=== PATIENT | male | born 1980 | race Caucasian/White ===

== ENCOUNTER 2021-09-23 13:15 | Inpatient (IN) ==
[2021-09-23] MEDS ORDERED: Ondansetron 4 mg VIAL 2 MG/ML 2 ml VIAL IV ONE (14:29)
[2021-09-23] MEDS ORDERED: Morphine 2 MG/ML SYRINGE IV PRN (15:25)
[2021-09-23] MEDS ORDERED: Magnesium Hydroxide LIQ 30 ML UDC PO PRN (15:25)
[2021-09-23] MEDS ORDERED: Ondansetron ODT 4 mg TAB 4 MG TAB PO PRN (15:25)
[2021-09-23] MEDS ORDERED: Lactulose 30 ml UDC PO PRN (15:25)
[2021-09-23] MEDS ORDERED: Ondansetron 4 mg VIAL 2 MG/ML 2 ml VIAL IV PRN (15:25)
[2021-09-23] MEDS ORDERED: diPHENhydraMINE 25 mg TAB PO PRN (15:25)
[2021-09-23] MEDS ORDERED: diPHENhydraMINE IV 50 MG/ML 1 ml VIAL (BENADRYL) IV PRN (15:25)
[2021-09-23 16:33] LABS: ABS Basophils 0.1 10^3/ul (0-0.2); ABS Eosinophils 0.1 10^3/ul (0-0.6); ABS Lymphocytes 1.2 10^3/ul (1.0-4.8); ABS Monocytes 0.5 10^3/ul (0-0.8); ABS Neutrophils 13.1 10^3/ul (1.5-7.7); Hematocrit 40 % (42-52); Hemoglobin 13.8 g/dL (14.0-18.0); Lymphocyte % 8.2 %; Mean Corpuscular HGB Conc 35 g/dL (31-36); Mean Corpuscular Hemoglobin 33 pg (27-31); Mean Corpuscular Volume 94 fL (80-94); Mean Platelet Volume 7.4 fL (7.4-10.4); Platelet Count 299 10^3/uL (150-450); Red Blood Count 4.21 10^6 /uL (4.18-5.48); Red Cell Distribution Width 13 % (10-15)
[2021-09-23 16:54] LABS: Activated Partial Thrombo Time 27.7 seconds (26.0-38.0); INR 1.06 (0.86-1.15)
[2021-09-23 17:05] LABS: Calcium 9.3 mg/dL (8.6-10.3); eGFR CKD-EPI 115.8 (>60)
[2021-09-23] MEDS ORDERED: Heparin 5000 UNITS/ML 1 mL VIAL SUBCUT SCH ×2 (19:00→21:00)
[2021-09-23] MEDS: Lactated Ringers 1000 ml BAG 1,000 ML IV SCH (20:00)
[2021-09-23] MEDS: Magnesium Hydroxide LIQ 30 ML UDC PO SCH (22:29)
[2021-09-24] MEDS: Lactated Ringers 1000 ml BAG 1,000 ML IV SCH ×2 (06:22→22:07)
[2021-09-24 06:24] LABS: ABS Eosinophils 0.4 10^3/ul (0-0.6); ABS Lymphocytes 2.8 10^3/ul (1.0-4.8); ABS Monocytes 0.8 10^3/ul (0-0.8); ABS Neutrophils 6.5 10^3/ul (1.5-7.7); Eosinophil % 3.4 %; Hematocrit 38 % (42-52); Hemoglobin 13.4 g/dL (14.0-18.0); Lymphocyte % 26.6 %; Mean Corpuscular HGB Conc 35 g/dL (31-36); Mean Corpuscular Hemoglobin 33 pg (27-31); Mean Corpuscular Volume 94 fL (80-94); Mean Platelet Volume 7.6 fL (7.4-10.4); Platelet Count 276 10^3/uL (150-450); Red Blood Count 4.06 10^6 /uL (4.18-5.48); Red Cell Distribution Width 13 % (10-15); White Blood Count 10.5 10^3/uL (3.5-10.8)
[2021-09-24 06:31] LABS: INR 1.11 (0.86-1.15)
[2021-09-24 07:00] LABS: Calcium 9.3 mg/dL (8.6-10.3); Potassium 4.5 mmol/L (3.5-5.0); eGFR CKD-EPI 112.2 (>60)
[2021-09-24] MEDS: Magnesium Hydroxide LIQ 30 ML UDC PO SCH ×2 (07:22→22:12)
[2021-09-24] MEDS: Vitamin THERAPEUTIC TAB PO SCH (07:22)
[2021-09-24] MEDS: Nicotine PATCH 7 MG/24 HR PATCH TRANSDERM SCH (10:16)
[2021-09-24] MEDS ORDERED: Propofol 10 MG/ML 20 ML BTL ONE (12:08)
[2021-09-24] MEDS ORDERED: fentaNYL 250 mcg/5 ml 50 MCG/ML 5 ml VIAL (250 MCG) ONE ×2 (12:08→15:33)
[2021-09-24] MEDS ORDERED: Midazolam 2 mg/2 ml VIAL 1 mg/ml 2 ml VIAL (2 mg) ONE (12:08)
[2021-09-24] MEDS ORDERED: Lidocaine 2% PF 5 ML VIAL ONE (12:08)
[2021-09-24] MEDS ORDERED: ceFAZolin 2 GM in NS PREMIX 2 GM/100 ML BAG IVPB ONE (13:27)
[2021-09-24] MEDS ORDERED: HYDROmorphone 1 MG/1 ML SYRINGE IV PRN ×2 (14:22→19:06)
[2021-09-24] MEDS ORDERED: Acetaminophen IV 1 GM/100ML 100 ML IV ONE ×2 (14:22→15:04)
[2021-09-24] MEDS ORDERED: Rocuronium 50 mg VIAL 10 mg/ml 5 ml VIAL (50 mg) ONE ×3 (14:38→17:16)
[2021-09-24] MEDS ORDERED: ceFAZolin VIAL VIAL ONE ×2 (14:56→18:18)
[2021-09-24] MEDS ORDERED: hydrALAZINE 20 mg/ml 1 ML Vial IV ONE (15:06)
[2021-09-24] MEDS ORDERED: HYDROmorphone 0.5 MG/0.5 ML SYRINGE ONE (15:16)
[2021-09-24] MEDS ORDERED: Bupivacaine 0.5% 50 ML MDV VIAL ONE (18:51)
[2021-09-24] MEDS ORDERED: Prochlorperazine 5 mg/ml 2 ml VIAL (10 mg) IV PRN (19:06)
[2021-09-24] MEDS ORDERED: Naloxone 0.4 mg VIAL 0.4 mg/ml 1 ml VIAL IV PRN (19:06)
[2021-09-24] MEDS ORDERED: fentaNYL 100 mcg/2 ml 50 MCG/ML VIAL IV PRN (19:06)
[2021-09-24] MEDS ORDERED: fentaNYL 100 mcg/2 ml 50 MCG/ML VIAL ONE (20:06)
[2021-09-24] MEDS ORDERED: HYDROmorphone 1 MG/1 ML SYRINGE ONE (20:42)
[2021-09-25] MEDS: ceFAZolin VIAL 1 GM in NS 0.9% 50 ML 50 ML IVPB SCH ×3 (02:03→18:56)
[2021-09-25 07:01] LABS: Hematocrit 33 % (42-52); Hemoglobin 11.5 g/dL (14.0-18.0); Mean Platelet Volume 7.7 fL (7.4-10.4); Platelet Count 257 10^3/uL (150-450)
[2021-09-25 07:16] LABS: Calcium 8.7 mg/dL (8.6-10.3); Potassium 4.2 mmol/L (3.5-5.0); eGFR CKD-EPI 117.8 (>60)
[2021-09-25] MEDS: Nicotine PATCH 7 MG/24 HR PATCH TRANSDERM SCH (09:20)
[2021-09-25] MEDS: Vitamin THERAPEUTIC TAB PO SCH (09:20)
[2021-09-25] MEDS: Magnesium Hydroxide LIQ 30 ML UDC PO SCH (09:20)
[2021-09-25] MEDS ORDERED: Enoxaparin 40 MG/0.4 ML SYR SUBCUT SCH (12:00)
[2021-09-25 12:28] LABS: ABS Lymphocytes 1.9 10^3/ul (1.0-4.8); ABS Monocytes 0.9 10^3/ul (0-0.8); ABS Neutrophils 10.5 10^3/ul (1.5-7.7); Eosinophil % 0.1 %; Lymphocyte % 14.6 %; Mean Corpuscular HGB Conc 35 g/dL (31-36); Mean Corpuscular Hemoglobin 34 pg (27-31); Mean Corpuscular Volume 95 fL (80-94); Red Blood Count 3.43 10^6 /uL (4.18-5.48); Red Cell Distribution Width 13 % (10-15); White Blood Count 13.3 10^3/uL (3.5-10.8)
[2021-09-25 15:35] VITALS: BP 120/61
== END 2021-09-25 19:20 | disposition home or self-care (01) | DRG 313 ==
LOC: ED 13:15 → EDHOLD 15:25 → SSU 18:15
PROVIDERS: ADMIT Orthopaedic Surgery Sports Medicine; ATTEND Orthopaedic Surgery Sports Medicine